=== PATIENT | female | born 1990 | race Asian ===

== ENCOUNTER 2021-03-26 02:46 | Emergency (ER) | payer MEDICAID ==
[~2021-03-26] VITALS: Ht 157.5 cm; Wt 65.1 kg
[2021-03-26 02:48] VITALS: BP 107/76
[2021-03-26] MEDS ORDERED: LIDOCAINE-MPF 1%, 5ML ONE (03:14)
[2021-03-26] MEDS ORDERED: DIPH,PERTUSS(ACELL),TET VAC/PF 0.5 ML IM-VACC ONE ×3 (03:30→03:34)
[2021-03-26] MEDS ORDERED: LIDOCAINE-MPF 1%, 5ML INFIL ONE (03:30)
[2021-03-26] MEDS ORDERED: BACITRACIN ZINC OINT 500U/GM, 0.9 GM ONE (03:35)
[2021-03-26] MEDS ORDERED: PLEASE ENTER ALLERGIES MC SCH (04:00)
== END 2021-03-26 04:28 | disposition home or self-care (01) ==
LOC: ED 04:27
DX: L03.116 Cellulitis of left lower limb (principal); L02.416 Cutaneous abscess of left lower limb; F17.210 Nicotine dependence, cigarettes, uncomplicated
CPT/HCPCS: 10060; 90471; 90715; 99283

== ENCOUNTER 2021-03-29 08:03 | Emergency (ER) | payer MEDICAID ==
[~2021-03-29] VITALS: Ht 157.5 cm; Wt 65.0 kg
[2021-03-29 08:11] VITALS: BP 111/74
--- NOTE | 2021-03-29 08:27 | NUR ---
corporate secretary note: Pt agitated, cussing at door screener. Pt upset about waiting in the lobby. This RN provided service recovery. Pt continued yelling and cussing. Pt reports she wants to leave. Pt continues yelling, escorted off property by security.
== END 2021-03-29 10:29 | disposition left against medical advice (07) ==
LOC: ED 10:25
DX: R51.9 Headache, unspecified (principal); M25.512 Pain in left shoulder; Z53.21 Procedure and treatment not carried out due to patient leaving prior to being seen by health care provider